=== PATIENT | male | born 1965 | race Caucasian/White ===

== ENCOUNTER → 2016-03-21 | Outpatient (CLI) | payer OTHER ==
--- NOTE | 2016-03-25 15:00 | SLEEPHOME ---
DATE OF PROCEDURE: 03/21/2016 REFERRING PROVIDER: Dr. Edge INTERPRETATION: Diagnostic home sleep testing was performed due to concern for the obstructive sleep apnea syndrome in this patient with a history of excessive somnolence, nonrestorative sleep, and comorbidities of hypertension and emphysema. Portable home monitoring was performed using a NOX-T3 respiratory monitoring device. Continuous record was made of pulse, oxygen saturation, chest and abdominal strain, air flow and body position. 5 hours and 29 minutes of data were reviewed. Of these, 5 hours and 12 minutes were marked as time in bed. During the interval marked time in bed, there were 131 respiratory events identified of 10 seconds in duration or greater for a respiratory event index of 25.2. The events were primarily obstructive, though ten mixed apneas were seen. Baseline oxygen saturation was 92%. Lowest oxygen saturation 80%. Average pulse rate was 85 beats per minute. Pulse rate ranged 56 to 113 beats per minute. Testing was performed in both supine and nonsupine positions. IMPRESSION: Abnormal home sleep testing with repetitive respiratory events and oxygen desaturations to 80% with a respiratory event index of 25.2 is consistent with the obstructive sleep apnea. RECOMMENDATION: The patient should be referred for formal in laboratory pressure titration given the profound oxygen desaturations seen.
== END ==
LOC: M SLEEP 09:17
PROVIDERS: ATTEND Internal Medicine Pulmonary Disease
DX: G47.30 Sleep apnea, unspecified (principal)

== ENCOUNTER → 2016-09-21 | Outpatient (REF) | payer OTHER | LOC: M LAB REF 15:41 | PROVIDERS: ATTEND Orthopaedic Surgery | DX: M72.0 Palmar fascial fibromatosis [Dupuytren] (principal) ==

== ENCOUNTER → 2021-03-22 | Outpatient (CLI) | payer MEDICARE ==
[~2021-03-22] MED LIST: ACET300T2 PO; AMLO1TAB24 PO; ANOR1AER PO; ATOR1TAB21 PO; CITA40TA6 PO; FISH7.5C PO; LISI20TA33 PO; VITA-176 PO
--- NOTE | 2021-03-22 09:42 | REP ---
INDICATION: SMOKER. COMPARISON: 07/27/2009 the latest prior TECHNIQUE: Axial noncontrast images from the thoracic inlet to the upper abdomen using low-dose lung screening technique (LDCT). As per the protocol only lung window images were sent to the read station for interpretation. FINDINGS: An 8 mm sized nodule has developed in the right upper lobe. Otherwise, there are no significant changes. Bullous emphysematous changes are noted status quo. There is an incidental calcified granuloma in the right upper lobe and left lower lobe. Grossly, the mediastinum and pulmonary jesse are unchanged. Grossly, the imaged upper abdomen and imaged osseous structures are unchanged. IMPRESSION: There is a new 8 mm size right upper lobe nodule. According to the revised Fleischner society criteria this represents a category 4A lesion for which a 3 month follow-up CT is recommended. PET-CT at this time can also be considered. <Electronically signed by Cody Rooney > 03/22/21 09
== END ==
LOC: M RAD 08:39
PROVIDERS: ATTEND Internal Medicine Pulmonary Disease
DX: Z12.2 Encounter for screening for malignant neoplasm of respiratory organs (principal); Z87.891 Personal history of nicotine dependence; R91.1 Solitary pulmonary nodule; J84.10 Pulmonary fibrosis, unspecified; J43.9 Emphysema, unspecified

== ENCOUNTER → 2021-04-26 | Outpatient (CLI) | payer MEDICARE | LOC: M PLARAD 07:35 | PROVIDERS: ATTEND Internal Medicine Pulmonary Disease | DX: R91.1 Solitary pulmonary nodule (principal); J43.2 Centrilobular emphysema; I25.10 Atherosclerotic heart disease of native coronary artery without angina pectoris; K76.0 Fatty (change of) liver, not elsewhere classified; N28.1 Cyst of kidney, acquired | CPT/HCPCS: 78815; A9552 ==

== ENCOUNTER → 2021-08-02 | Outpatient (CLI) | payer MEDICARE ==
[~2021-08-02] MED LIST changes: -ACET300T2 PO; +ACET300T53 PO
== END ==
LOC: M RAD 15:52
PROVIDERS: ATTEND Internal Medicine Pulmonary Disease
DX: R91.8 Other nonspecific abnormal finding of lung field (principal)

== ENCOUNTER → 2022-02-14 | Outpatient (CLI) | payer MEDICARE ==
[~2022-02-14] MED LIST changes: +FISH10005 PO; -FISH7.5C PO
== END ==
LOC: M PLAIMG 10:10
PROVIDERS: ATTEND Internal Medicine Pulmonary Disease
DX: R91.1 Solitary pulmonary nodule (principal); N20.0 Calculus of kidney; M47.9 Spondylosis, unspecified; J43.9 Emphysema, unspecified; J84.10 Pulmonary fibrosis, unspecified; K76.0 Fatty (change of) liver, not elsewhere classified

== ENCOUNTER → 2023-04-12 | Outpatient (CLI) | payer MEDICARE | LOC: M RAD 12:59 | PROVIDERS: ATTEND Internal Medicine Pulmonary Disease | DX: Z12.2 Encounter for screening for malignant neoplasm of respiratory organs (principal); Z87.891 Personal history of nicotine dependence; E04.1 Nontoxic single thyroid nodule; I70.0 Atherosclerosis of aorta; I25.10 Atherosclerotic heart disease of native coronary artery without angina pectoris; M51.34 Other intervertebral disc degeneration, thoracic region; J43.9 Emphysema, unspecified; K76.0 Fatty (change of) liver, not elsewhere classified; J98.11 Atelectasis ==

== ENCOUNTER → 2024-05-06 | Outpatient (CLI) | payer MEDICARE | LOC: M RAD 07:44 | PROVIDERS: ATTEND Internal Medicine Pulmonary Disease | DX: Z12.2 Encounter for screening for malignant neoplasm of respiratory organs (principal); Z87.891 Personal history of nicotine dependence; J84.10 Pulmonary fibrosis, unspecified; J44.9 Chronic obstructive pulmonary disease, unspecified; J43.9 Emphysema, unspecified; I25.10 Atherosclerotic heart disease of native coronary artery without angina pectoris ==